=== PATIENT | male | born 1995 | race Hispanic/Latino ===

== ENCOUNTER 2019-08-17 00:13 | Emergency (ER) | payer SELFPAY ==
[~2019-08-17] VITALS: Ht 175.3 cm; Wt 139.7 kg
[2019-08-17] MEDS ORDERED: NAPROSYN500 MG PO (00:21)
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
[2019-08-17] MEDS ORDERED: CYCLOBENZAPRINE5 MG PO (01:16)
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
[2019-08-17 04:25] VITALS: BP 138/72
== END 2019-08-17 02:33 | disposition home or self-care (01) ==
LOC: FSED 00:13
DX: S06.0X9A Concussion with loss of consciousness of unspecified duration, initial encounter (principal); S16.1XXA Strain of muscle, fascia and tendon at neck level, initial encounter; V43.52XA Car driver injured in collision with other type car in traffic accident, initial encounter; Y92.488 Other paved roadways as the place of occurrence of the external cause
CPT/HCPCS: 70450; 71046; 72125; 99283

== ENCOUNTER 2021-05-28 08:16 | Emergency (ER) | payer SELFPAY ==
[~2021-05-28] VITALS: Ht 177.8 cm; Wt 146.7 kg
[~2021-05-28 08:16] MED LIST: CYCLOBENZAPRINE5 MG PO; NAPROSYN500 MG PO
[2021-05-28] MEDS ORDERED: CLINDAMYCIN PHOS 600 MG/ 4 ML VIAL IM ONE (09:30)
[2021-05-28] MEDS ORDERED: CORTISPORIN-TC10 M1 LEFT EAR ×2 (09:30→10:21)
[2021-05-28] MEDS ORDERED: AUGMENTIN 875-1 EACH PO ×3 (09:31→10:23)
[2021-05-28] MEDS ORDERED: ULTRAM 50MG50 MG PO ×2 (09:33→10:23)
[2021-05-28] MEDS ORDERED: CLINDAMYCIN PHOS 600 MG/ 4 ML VIAL ONE (09:36)
== END 2021-05-28 09:46 | disposition home or self-care (01) ==
LOC: FSED 08:40
DX: H60.92 Unspecified otitis externa, left ear (principal)
CPT/HCPCS: 99282